=== PATIENT | female | born 1995 | race Caucasian/White ===

== ENCOUNTER 2016-08-17 09:02 | Emergency (ER) | payer OTHER ==
[2016-08-17 09:15] VITALS: BP 105/68
[2016-08-17] MEDS ORDERED: Ibuprofen TAB* 600 MG PO ONE (09:18)
--- NOTE | 2016-08-17 09:47 | UC ---
Hand/Wrist HPI - HPI Summary HPI Summary: right thumb pain x 1 day s/p fall yesterday , jammed her right thumb pain and swelling of the right thumb difficulty moving her right thumb - History Of Current Complaint Chief Complaint: UCUpperExtremity Stated Complaint: RIGHT THUMB PAIN Time Seen by Provider: 08/17/16 09:17 Hx Obtained From: Patient Hx Last Menstrual Period: "I don't know 'cause I went from the Depo to the arm thing..." ?: No Onset/Duration: Sudden Onset, Lasting Days - 1, Still Present Severity Initially: Moderate Severity Currently: Moderate Character Of Pain: Aching, Throbbing Aggravating Factor(s): Movement, Flexion, Extension Alleviating: Rest, Ice Associated Signs And Symptoms: Positive: Swelling, Weakness. Negative: Numbness /Tingling - Allergies/Home Medications Allergies/Adverse Reactions: Allergies Allergy/AdvReac Type Severity Reaction Status Date / Time Whit Grape Juice Allergy Swelling Uncoded 08/17/16 09:11 Home Medications: Home Medications NK [No Home Medications Reported] 08/17/16 [History Confirmed 08/17/16] PMH/Surg Hx/FS Hx/Imm Hx Endocrine History Of: Denies: Diabetes Cardiovascular History Of: Denies: Cardiac Disorders Respiratory History Of: Denies: Asthma - Surgical History Surgical History: None - Family History Known Family History: Positive: Hypertension - Social History Alcohol Use: Weekly Substance Use Type: None Smoking Status (MU): Light Every Day Tobacco Smoker Type: Cigarettes Amount Used/How Often: 1/3 PPD Length of Time of Smoking/Using Tobacco: Since age 15 Have You Smoked in the Last Year: Yes When Did the Patient Quit Smoking/Using Tobacco: quit 3 months ago Household Exposure Type: Cigarettes - Immunization History Most Recent Influenza Vaccination: Not the 2016/2016 Season Most Recent Tetanus Shot: 158LBS Review of Systems Constitutional: Negative Skin: Negative Eyes: Negative ENT: Negative Musculoskeletal: Other: - right thumb pain All Other Systems Reviewed And Are Negative: Yes Physical Exam Triage Information Reviewed: Yes Appearance: Well-Appearing, No Pain Distress, Well-Nourished Vital Signs: Initial Vital Signs Temp 98.6 F 08/17/16 09:09 Pulse 94 08/17/16 09:09 Resp 16 08/17/16 09:09 BP 105/68 08/17/16 09:09 Pulse Ox 99 08/17/16 09:09 Vital Signs Reviewed: Yes Eye Exam: Normal Eyes: Positive: Conjunctiva Clear ENT: Positive: Normal ENT inspection, Hearing grossly normal, Pharynx normal Neck exam: Normal Neck: Positive: Supple, Nontender, No Lymphadenopathy Respiratory: Positive: Chest non-tender, Lungs clear, Normal breath sounds Cardiovascular: Positive: RRR, No Murmur, Pulses Normal Musculoskeletal: Positive: Other: - right thumb : + swelling MP joint, tenderness , limited ROM on flexion from MP joint Diagnostics - Laboratory Diagnostic Studies Completed/Ordered: right thumb xray : no fracture seen Hand/Wrist Course/Dx - Differential Dx/Diagnosis Provider Diagnoses: sprain right thumb Discharge - Discharge Plan Condition: Stable Disposition: HOME Patient Education Materials: Finger Sprain (ED) Referrals: QIAN Jefferson [Primary Care Provider] - 7 Days Additional Instructions: no fracture seen on the xray sprain finger cont. with ice, rest, ibuprofen as needed for pain , use thumb spica follow up with your pcp in one week
--- NOTE | 2016-08-17 09:48 | RAD ---
HISTORY: Right thumb pain, trauma COMPARISONS: None VIEWS: 3, Frontal, lateral, and oblique views of the first digit of the right hand FINDINGS: BONE DENSITY: Normal. BONES: There is no displaced fracture. JOINTS: There is no arthropathy. ALIGNMENT: There is no dislocation. SOFT TISSUES: Unremarkable. OTHER FINDINGS: None. IMPRESSION: NO ACUTE OSSEOUS INJURY. IF SYMPTOMS PERSIST, RECOMMEND REPEAT IMAGING.
== END 2016-08-17 09:56 | disposition home or self-care (01) ==
LOC: UCCORT 09:02
DX: S63.601A Unspecified sprain of right thumb, initial encounter (principal); W19.XXXA Unspecified fall, initial encounter; Y93.9 Activity, unspecified; Y92.89 Other specified places as the place of occurrence of the external cause; Z87.891 Personal history of nicotine dependence; Z32.02 Encounter for pregnancy test, result negative
CPT/HCPCS: 84702; 99213; A9270-GY; G0463

== ENCOUNTER 2016-09-13 08:39 | Emergency (ER) | payer OTHER ==
[2016-09-13 09:06] VITALS: BP 112/71
--- NOTE | 2016-09-13 09:14 | UC ---
Throat Pain/Nasal Lamine HPI - HPI Summary HPI Summary: sore throat x 1 day , + nasal congestion , cough, no fever, no chills, + achy and fatigue - History of Current Complaint Chief Complaint: UCRespiratory Stated Complaint: THROAT,HEAD CONGESTION Time Seen by Provider: 09/13/16 09:08 Hx Obtained From: Patient Hx Last Menstrual Period: pt has nexplanon for B/C and states not getting a menses Onset/Duration: Gradual Onset, Lasting Days - 1, Still Present Severity: Severe Cough: Nonproductive Associated Signs & Symptoms: Positive: Nasal Discharge. Negative: Sinus Discomfort, Fever, Rash - Allergies/Home Medications Allergies/Adverse Reactions: Allergies Allergy/AdvReac Type Severity Reaction Status Date / Time Whit Grape Juice Allergy Swelling Uncoded 09/13/16 08:59 Home Medications: Home Medications Etonogestrel [Nexplanon] 68 mg IMPLANT DAILY 09/13/16 [History Confirmed ] PMH/Surg Hx/FS Hx/Imm Hx Endocrine History Of: Denies: Diabetes Cardiovascular History Of: Denies: Cardiac Disorders Respiratory History Of: Denies: Asthma - Surgical History Surgical History: None - Family History Known Family History: Positive: Hypertension - Social History Alcohol Use: Weekly Substance Use Type: None Smoking Status (MU): Heavy Every Day Tobacco Smoker Type: Cigarettes Amount Used/How Often: 1/2m ppd Length of Time of Smoking/Using Tobacco: Since age 15 Have You Smoked in the Last Year: Yes When Did the Patient Quit Smoking/Using Tobacco: quit 3 months ago Household Exposure Type: Cigarettes - Immunization History Most Recent Influenza Vaccination: Not the 2016/2016 Season Most Recent Tetanus Shot: 158LBS Review of Systems Constitutional: Negative Skin: Negative Eyes: Negative ENT: Sore Throat, Nasal Discharge Respiratory: Cough Cardiovascular: Negative Gastrointestinal: Negative Genitourinary: Negative All Other Systems Reviewed And Are Negative: Yes Physical Exam Triage Information Reviewed: Yes Appearance: Well-Appearing, No Pain Distress, Well-Nourished Vital Signs: Initial Vital Signs Temp 98.2 F 09/13/16 08:50 Pulse 81 09/13/16 08:50 Resp 14 09/13/16 08:50 BP 112/71 09/13/16 08:50 Pulse Ox 99 09/13/16 08:50 Eye Exam: Normal Eyes: Positive: Conjunctiva Clear ENT: Positive: Normal ENT inspection, Hearing grossly normal, Pharyngeal erythema, Nasal congestion, Nasal drainage, TMs normal Neck exam: Normal Neck: Positive: Supple, Nontender, No Lymphadenopathy Respiratory: Positive: Chest non-tender, Lungs clear, Normal breath sounds, No respiratory distress Cardiovascular: Positive: RRR, No Murmur, Pulses Normal Abdominal Exam: Normal Throat Pain/Nasal Course/Dx - Differential Dx/Diagnosis Provider Diagnoses: pharyngitis Discharge - Discharge Plan Condition: Stable Disposition: HOME Patient Education Materials: Pharyngitis (ED) Forms: *Work Release Referrals: QIAN Jefferson [Primary Care Provider] - If Needed
== END 2016-09-13 09:31 | disposition home or self-care (01) ==
LOC: UCCORT 08:39
DX: J02.9 Acute pharyngitis, unspecified (principal); R09.81 Nasal congestion
CPT/HCPCS: 87651; 99211; G0463

== ENCOUNTER 2016-09-19 19:08 | Emergency (ER) | payer OTHER ==
[2016-09-19 20:47] VITALS: BP 112/69
[2016-09-19] MEDS ORDERED: Amoxicillin/Clavulanate TAB* 875 MG PO ONE (21:00)
--- NOTE | 2016-09-19 22:08 | UC ---
Throat Pain/Nasal Lamine HPI - HPI Summary HPI Summary: NINE DAYS OF SINUS PRESSURE CONGESTION HEADACHE AND SORE THROAT. SEEN ON DIAGNOSED WITH URI. NO FEVER. NO RASH NO ABDOMINAL PAIN - History of Current Complaint Chief Complaint: UCGeneralIllness Stated Complaint: SINUS INFECTION Time Seen by Provider: 09/19/16 20:53 Hx Obtained From: Patient Hx Last Menstrual Period: nexplanon Onset/Duration: Gradual Onset, Lasting Weeks, Still Present Severity: Moderate Pain Intensity: 7 Pain Scale Used: 0-10 Numeric Cough: Nonproductive Associated Signs & Symptoms: Positive: Hoarseness, Sinus Discomfort, Nasal Discharge - Epiglottits Risk Factors Epiglottis Risk Factors: Negative - Allergies/Home Medications Allergies/Adverse Reactions: Allergies Allergy/AdvReac Type Severity Reaction Status Date / Time Whit Grape Juice Allergy Swelling Uncoded 09/19/16 20:47 PMH/Surg Hx/FS Hx/Imm Hx Previously Healthy: Yes Endocrine History Of: Denies: Diabetes Cardiovascular History Of: Denies: Cardiac Disorders Respiratory History Of: Denies: Asthma - Surgical History Surgical History: None - Family History Known Family History: Positive: Hypertension - Social History Occupation: Employed Full-time Lives: With Family Alcohol Use: Occasionally Substance Use Type: None Smoking Status (MU): Light Every Day Tobacco Smoker Type: Cigarettes Amount Used/How Often: 1/3 PPD Length of Time of Smoking/Using Tobacco: Since age 15 Have You Smoked in the Last Year: Yes When Did the Patient Quit Smoking/Using Tobacco: quit 3 months ago Household Exposure Type: Cigarettes - Immunization History Most Recent Influenza Vaccination: Not the 2016/2016 Season Most Recent Tetanus Shot: 158LBS Review of Systems Constitutional: Negative Skin: Negative Eyes: Negative ENT: Sore Throat, Ear Ache, Nasal Discharge Respiratory: Cough Cardiovascular: Negative Gastrointestinal: Negative Genitourinary: Negative Motor: Negative Neurovascular: Negative Musculoskeletal: Negative Neurological: Negative Psychological: Negative All Other Systems Reviewed And Are Negative: Yes Physical Exam Triage Information Reviewed: Yes Appearance: Well-Appearing, No Pain Distress, Well-Nourished Vital Signs: Initial Vital Signs Temp 98.5 F 09/19/16 20:43 Pulse 102 09/19/16 20:43 Resp 16 09/19/16 20:43 BP 112/69 09/19/16 20:43 Pulse Ox 97 09/19/16 20:43 Vital Signs Reviewed: Yes Eye Exam: Normal ENT: Positive: Hearing grossly normal, Nasal congestion, TM bulging, TM dull Dental Exam: Normal Neck exam: Normal Neck: Positive: Supple, Nontender, No Lymphadenopathy Respiratory Exam: Normal Respiratory: Positive: Chest non-tender, Lungs clear, Normal breath sounds Cardiovascular Exam: Normal Cardiovascular: Positive: RRR, No Murmur, Pulses Normal Abdominal Exam: Normal Abdomen Description: Positive: Nontender, No Organomegaly Musculoskeletal Exam: Normal Neurological Exam: Normal Psychological Exam: Normal Skin Exam: Normal Throat Pain/Nasal Course/Dx - Differential Dx/Diagnosis Differential Diagnosis/HQI/PQRI: Pharyngitis, Sinusitis, URI Provider Diagnoses: SINUSITIS Discharge - Discharge Plan Condition: Stable Disposition: HOME Prescriptions: Amoxicillin/Clavulanate TAB* [Augmentin TAB 875*] 875 mg PO BID #20 tab Patient Education Materials: Sinusitis (ED) Referrals: QIAN Jefferson [Primary Care Provider] -
== END 2016-09-19 21:08 | disposition home or self-care (01) ==
LOC: UCCORT 19:08
DX: J32.9 Chronic sinusitis, unspecified (principal); Z87.891 Personal history of nicotine dependence
CPT/HCPCS: 99211; A9270-GY; G0463

== ENCOUNTER 2016-12-17 11:41 | Emergency (ER) | payer OTHER ==
[2016-12-17 11:57] VITALS: BP 108/69
--- NOTE | 2016-12-17 12:26 | UC ---
Complaint Female HPI - HPI Summary HPI Summary: 21 y/o female presents to the urgent care c/o vaginal discharge w/ vaginal itching since 12/13/2016. Pt thinks she has a yeast infection. she took monistat 3 days ago and it didn't help. Pt cant recall her LMP since she has been in Nexplanon, she has a yeast infection in 2016, and Rx Diflucan which helped. Pt denies Hx of STD's , but would like to screen for all STD's. Pt denies urinary symptoms, fever, SOB, chest pain, N/V/D. pelvic or abdominal pain. - History Of Current Complaint Chief Complaint: UCGU Stated Complaint: PERSONAL Time Seen by Provider: 12/17/16 12:11 Hx Obtained From: Patient Hx Last Menstrual Period: "I have no clue." [Nexplanon] Onset/Duration: Gradual Onset, Lasting Days, Still Present Timing: Constant, Lasting Days Severity Initially: Mild Severity Currently: Moderate Pain Intensity: 0 Pain Scale Used: 0-10 Numeric Character: Not Applicable Aggravating Factor(s): Nothing Alleviating Factor(s): Nothing Associated Signs And Symptoms: Positive: Vaginal Discharge. Negative: Fever, Back Pain, Nausea, Vomiting(# Of Episodes =), Genital Swelling, Genital Blisters - Risk Factors Ectopic Risk Factor: Negative Ovarian Torsion Risk Factor: Negative - Allergies/Home Medications Allergies/Adverse Reactions: Allergies Allergy/AdvReac Type Severity Reaction Status Date / Time White Grape Juice Allergy Swelling Uncoded 12/17/16 11:54 PMH/Surg Hx/FS Hx/Imm Hx Previously Healthy: Yes - Surgical History Surgical History: None - Family History Known Family History: Positive: Hypertension - Social History Occupation: Employed Full-time Lives: With Family Alcohol Use: Weekly Substance Use Type: None Smoking Status (MU): Heavy Every Day Tobacco Smoker Type: Cigarettes Amount Used/How Often: 1/2 PPD Length of Time of Smoking/Using Tobacco: Since Age 14 Have You Smoked in the Last Year: Yes When Did the Patient Quit Smoking/Using Tobacco: quit 3 months ago Household Exposure Type: Cigarettes - Immunization History Most Recent Influenza Vaccination: Not the 2015/2016 Season Most Recent Tetanus Shot: 158LBS Review of Systems Constitutional: Negative Skin: Negative Eyes: Negative ENT: Negative Respiratory: Negative Cardiovascular: Negative Gastrointestinal: Other - vaginal discharge with itchiness Genitourinary: Negative Motor: Negative Neurovascular: Negative Musculoskeletal: Negative Neurological: Negative Psychological: Negative All Other Systems Reviewed And Are Negative: Yes Physical Exam Triage Information Reviewed: Yes Appearance: Well-Appearing, No Pain Distress, Well-Nourished Vital Signs: Initial Vital Signs Temp 98.6 F 12/17/16 11:51 Pulse 102 12/17/16 11:51 Resp 16 12/17/16 11:51 BP 108/69 12/17/16 11:51 Pulse Ox 98 12/17/16 11:51 Vital Signs Reviewed: Yes Eye Exam: Normal Eyes: Positive: Conjunctiva Clear - PERRLA, EOMI, ENT Exam: Normal ENT: Positive: Normal ENT inspection, Hearing grossly normal, Pharynx normal, TMs normal Dental Exam: Normal Neck exam: Normal Neck: Positive: Supple, Nontender, No Lymphadenopathy Respiratory Exam: Normal Respiratory: Positive: Chest non-tender, Lungs clear, Normal breath sounds Cardiovascular Exam: Normal Cardiovascular: Positive: RRR, No Murmur, Pulses Normal Abdominal Exam: Normal Abdomen Description: Positive: Nontender, No Organomegaly, Soft, Other: - Pelvic: I was assisted by Nurse Yuli. External genitalia within normal limits. There is no lesions there is no masses noted. Speculum exam: The vaginal marquez are within normal limits w/ white, greyish cottage cheese vaginal discharge, no the lesions or rashes. The cervix is closed with mild erythema around. There is no CMT's, and no adnexal masses. Sample sent to Lab for G/ C and affirm. Rectal: No lesions, no hemorrhoids,. Negative: CVA Tenderness (R) , CVA Tenderness (L) Bowel Sounds: Positive: Present Musculoskeletal Exam: Normal Musculoskeletal: Positive: Strength Intact, ROM Intact, No Edema Neurological Exam: Normal Psychological Exam: Normal Skin Exam: Normal Complaint Female Dx - Course Course Of Treatment: 21 y/o female presents to the urgent care c/o vaginal discharge w/ vaginal itching since 12/13/2016. Pt thinks she has a yeast infection. she took monistat 3 days ago and it didn't help. Pt cant recall her LMP since she has been in Nexplanon, she has a yeast infection in 2016, and Rx Diflucan which helped. Pt denies Hx of STD's , but would like to screen for all STD's. Pt denies urinary symptoms, fever, SOB, chest pain, N/V/D. pelvic or abdominal pain.HX obtained. Labs ordered to screen for all STD's: HIV, RPR, GC/Shahriar, Affirm, UA: + trace of Leukoescteraces, will be sent for culture r/o UTI. Pregnanacy test: negative. Pt Rx Fluconazol PO and Metronidazol vaginal cream to Tx Vulvovaginal Candidiasis and BV. Pt stronly advised to f/u with ASSESSMENT ANALYST for a PAP since there is erythema aroud the cervical os. Pt also advised if anything abnormal from lab result she will hear from us for further treatment. Pt understood and agreed - Differential Dx/Diagnosis Differential Diagnosis/HQI/PQRI: Cervicitis, Pelvic Inflammatory Disease, , Sexually Transmitted Disease, Urinary Tract Infection, Other - vaginosis Provider Diagnoses: 1- Vulvovaginal candidiasis. 2- Bacterail Vaginosis. 3 HIV screening. 4- sexually transmitted disease screening Discharge - Discharge Plan Condition: Stable Disposition: HOME Prescriptions: Fluconazole [Fluconazole 150 mg tab] 150 mg PO ONCE #1 tab metroNIDAZOLE VAGINAL 0.75%* 1 applic VAGINAL BEDTIME #1 romel Patient Education Materials: Vulvovaginal Candidiasis (ED), Bacterial Vaginosis (ED) Referrals: QIAN Jefferson [Primary Care Provider] - If Needed Additional Instructions: 1- Please take and apply medications as directed. 2-Specimen sent to lab for STD's screening, if anything abnormal you will hear from us for further treatment 3-F/u with your ASSESSMENT ANALYST if not improvement of symptoms or your next PAP
[2016-12-18 13:29] LABS: Syphilis Index < 0.1 Index
--- NOTE | 2016-12-19 13:51 | UC ---
Progress - Progress Note Progress Note: Vag DNA shows +BV, pt treated with metronidazole. Shannon neg, was given fluconazole x 1. Urine culture shows 1-10,000 Strep Grp B, will treat. Needs Amoxicillin 875mg po bid #14. E-Rx'd. allergies noted. test neg on date examined. Aryan Wayne MD, 12/19/16, 13:54.
== END 2016-12-17 13:00 | disposition home or self-care (01) ==
LOC: UCCORT 11:41
DX: N76.0 Acute vaginitis (principal); Z11.4 Encounter for screening for human immunodeficiency virus [HIV]; F17.200 Nicotine dependence, unspecified, uncomplicated
CPT/HCPCS: 36415; 81003; 84702; 86592; 86703; 87077; 87086; 87480; 87491; 87510; 87591; 87661; 99212; G0463

== ENCOUNTER 2017-01-13 16:30 | Emergency (ER) | payer OTHER ==
[2017-01-13 16:44] VITALS: BP 113/63
--- NOTE | 2017-01-13 17:26 | UC ---
Throat Pain/Nasal Lamine HPI - HPI Summary HPI Summary: SORE THROAT SINCE YESTERDAY, EAR FULLNESS. NO FEVER. NO RASH. NO ABDOMINAL PAIN. - History of Current Complaint Chief Complaint: UCRespiratory Stated Complaint: SORE THROAT Time Seen by Provider: 01/13/17 16:37 Hx Obtained From: Patient Hx Last Menstrual Period: pt has implanon and states not getting a menses Onset/Duration: Gradual Onset Severity: Moderate Pain Intensity: 6 Pain Scale Used: 0-10 Numeric Cough: None Associated Signs & Symptoms: Positive: Dysphagia, Hoarseness - Epiglottits Risk Factors Epiglottis Risk Factors: Negative - Allergies/Home Medications Allergies/Adverse Reactions: Allergies Allergy/AdvReac Type Severity Reaction Status Date / Time White Grape Juice Allergy Swelling Uncoded 12/17/16 11:54 Home Medications: Home Medications Antihistimine 1 tab PO PRN 01/13/17 [History] Ibuprofen [Ibuprofen 200 MG] 400 mg PO PRN 01/13/17 [History] PMH/Surg Hx/FS Hx/Imm Hx Previously Healthy: Yes - Surgical History Surgical History: None - Family History Known Family History: Positive: Hypertension - Social History Occupation: Employed Full-time Lives: With Family Alcohol Use: Weekly Substance Use Type: None Smoking Status (MU): Heavy Every Day Tobacco Smoker Type: Cigarettes Amount Used/How Often: 1/2 PPD Length of Time of Smoking/Using Tobacco: Since Age 14 Have You Smoked in the Last Year: Yes When Did the Patient Quit Smoking/Using Tobacco: quit 3 months ago Household Exposure Type: Cigarettes Cessation Counseling: Patient Advised to Stop - Immunization History Most Recent Influenza Vaccination: Not the 2016/2016 Season Most Recent Tetanus Shot: 158LBS Review of Systems Constitutional: Negative Skin: Negative Eyes: Negative ENT: Sore Throat Respiratory: Negative Cardiovascular: Negative Gastrointestinal: Negative Genitourinary: Negative Motor: Negative Neurovascular: Negative Musculoskeletal: Negative Neurological: Negative Psychological: Negative Is Patient Immunocompromised?: No All Other Systems Reviewed And Are Negative: Yes Physical Exam Triage Information Reviewed: Yes Appearance: No Pain Distress, Well-Nourished, Ill-Appearing - MILDLY Vital Signs: Initial Vital Signs Temp 98.9 F 01/13/17 16:39 Pulse 89 01/13/17 16:39 Resp 16 01/13/17 16:39 BP 113/63 01/13/17 16:39 Pulse Ox 99 01/13/17 16:39 Vital Signs Reviewed: Yes Eye Exam: Normal ENT: Positive: Hearing grossly normal, Pharyngeal erythema, TMs normal, Tonsillar swelling Dental Exam: Normal Neck exam: Normal Neck: Positive: Supple, Nontender, No Lymphadenopathy Respiratory Exam: Normal Respiratory: Positive: Chest non-tender, Lungs clear, Normal breath sounds, No respiratory distress Cardiovascular Exam: Normal Cardiovascular: Positive: RRR, No Murmur, Pulses Normal Abdominal Exam: Normal Abdomen Description: Positive: Nontender, No Organomegaly Musculoskeletal Exam: Normal Musculoskeletal: Positive: Strength Intact, ROM Intact Neurological Exam: Normal Psychological Exam: Normal Skin Exam: Normal Throat Pain/Nasal Course/Dx - Differential Dx/Diagnosis Differential Diagnosis/HQI/PQRI: Pharyngitis, Sinusitis, Tonsillitis Provider Diagnoses: TONSILLITIS Discharge - Discharge Plan Condition: Stable Disposition: HOME Patient Education Materials: Tonsillitis (ED) Forms: *Work Release Referrals: QIAN Jefferson [Primary Care Provider] -
== END 2017-01-13 17:15 | disposition home or self-care (01) ==
LOC: UCCORT 16:30
DX: J03.90 Acute tonsillitis, unspecified (principal); Z72.0 Tobacco use
CPT/HCPCS: 87651; 99211; G0463

== ENCOUNTER 2017-04-06 16:16 | Emergency (ER) | payer OTHER ==
[2017-04-06 16:33] VITALS: BP 130/69
--- NOTE | 2017-04-06 17:07 | UC ---
UC General HPI - HPI Summary HPI Summary: Patient has had white vaginal dishcarge, with an odor and some itching of the vulva for the past few days, - History of Current Complaint Chief Complaint: UCGU Stated Complaint: PERSONAL Time Seen by Provider: 04/06/17 16:50 Hx Obtained From: Patient Hx Last Menstrual Period: pt has implanon and states not getting a menses Onset/Duration: Sudden Onset, Lasting Days Timing: Constant Onset Severity: Mild Current Severity: Mild - Allergy/Home Medications Allergies/Adverse Reactions: Allergies Allergy/AdvReac Type Severity Reaction Status Date / Time White Grape Juice Allergy Swelling Uncoded 04/06/17 16:34 PMH/Surg Hx/FS Hx/Imm Hx Previously Healthy: Yes - Surgical History Surgical History: None - Family History Known Family History: Positive: Hypertension - Social History Alcohol Use: Weekly Substance Use Type: None Smoking Status (MU): Heavy Every Day Tobacco Smoker Type: Cigarettes Amount Used/How Often: 1/2 PPD Length of Time of Smoking/Using Tobacco: Since Age 14 Have You Smoked in the Last Year: Yes When Did the Patient Quit Smoking/Using Tobacco: quit 3 months ago Household Exposure Type: Cigarettes - Immunization History Most Recent Influenza Vaccination: Not the 2015/2016 Season Most Recent Tetanus Shot: 158LBS Review of Systems Constitutional: Negative Skin: Negative Eyes: Negative ENT: Negative Respiratory: Negative Cardiovascular: Negative Gastrointestinal: Negative Genitourinary: Vaginal/Penile Itching, Vaginal/Penile Discharge Motor: Negative Neurovascular: Negative Musculoskeletal: Negative Neurological: Negative Psychological: Negative Is Patient Immunocompromised?: No All Other Systems Reviewed And Are Negative: Yes Physical Exam Triage Information Reviewed: Yes Appearance: Well-Appearing, Well-Nourished, Pain Distress Vital Signs: Initial Vital Signs Temp 98.4 F 04/06/17 16:29 Pulse 95 04/06/17 16:29 Resp 17 04/06/17 16:29 BP 130/69 04/06/17 16:29 Pulse Ox 99 04/06/17 16:29 Vital Signs Reviewed: Yes Eye Exam: Normal ENT Exam: Normal Dental Exam: Normal Neck exam: Normal Respiratory Exam: Normal Cardiovascular Exam: Normal Abdominal Exam: Normal Abdomen Description: Positive: Nontender, No Organomegaly, Soft, Other: - vaginal discharge Bowel Sounds: Positive: Present Musculoskeletal Exam: Normal Neurological Exam: Normal Psychological Exam: Normal Course/Dx - Course Course Of Treatment: hx obtained, exam performed ,med reviewed, treated for Yeast infection - Differential Dx - Multi-Symptom Provider Diagnoses: vaginitis Discharge - Discharge Plan Condition: Stable Disposition: HOME Patient Education Materials: Vaginitis (ED) Referrals: QIAN Jefferson [Primary Care Provider] - Additional Instructions: 1. take the medication as prescribed. 2. use the coconut oil for soothing the skin 3. follow up as needed.
== END 2017-04-06 17:19 | disposition home or self-care (01) ==
LOC: UCCORT 16:16
DX: N76.0 Acute vaginitis (principal); Z11.4 Encounter for screening for human immunodeficiency virus [HIV]; Z87.891 Personal history of nicotine dependence
CPT/HCPCS: 36415; 86703; 99212; G0463

== ENCOUNTER 2017-05-27 16:15 | Emergency (ER) | payer OTHER ==
[2017-05-27 17:26] VITALS: BP 115/68
--- NOTE | 2017-05-27 17:27 | UC ---
Throat Pain/Nasal Lamine HPI - HPI Summary HPI Summary: 22 y/o female presents to the urgent care c/o sore throat, fever, Tompkins nasal congestion and body aches for the past 2 days. Her friend was Dx with bronchitis recently. Pt has taking Tylenol PO to alleviate symptoms. Pain is 5/ 10 with swallowing. Pt denies SOB, wheezing, chest pain, abdominal pain, N/V/D. - History of Current Complaint Chief Complaint: UCRespiratory Stated Complaint: SORE THROAT/FEVER Time Seen by Provider: 05/27/17 17:25 Hx Obtained From: Patient Hx Last Menstrual Period: unknown, nexplanon ?: No Onset/Duration: Gradual Onset, Lasting Days - 2 days, Still Present Severity: Moderate Pain Intensity: 5 Pain Scale Used: 0-10 Numeric Cough: Nonproductive Associated Signs & Symptoms: Positive: Nasal Discharge, Fever, Other - body aches - Epiglottits Risk Factors Epiglottis Risk Factors: Negative - Allergies/Home Medications Allergies/Adverse Reactions: Allergies Allergy/AdvReac Type Severity Reaction Status Date / Time White Grape Juice Allergy Swelling Uncoded 05/27/17 17:26 Home Medications: Home Medications Acetaminophen TAB* [Tylenol TAB*] 650 mg PO Q4H PRN 05/27/17 [History Confirmed 05/27/17] PMH/Surg Hx/FS Hx/Imm Hx Previously Healthy: Yes - Pt deneis PMHX - Surgical History Surgical History: None - Family History Known Family History: Positive: Hypertension - Social History Occupation: Employed Full-time Lives: With Family Alcohol Use: Weekly Substance Use Type: None Smoking Status (MU): Heavy Every Day Tobacco Smoker Type: Cigarettes Amount Used/How Often: 1/2 PPD Length of Time of Smoking/Using Tobacco: Since Age 14 Have You Smoked in the Last Year: Yes When Did the Patient Quit Smoking/Using Tobacco: quit 3 months ago Household Exposure Type: Cigarettes - Immunization History Most Recent Influenza Vaccination: Not the 2016/2017 Season Most Recent Tetanus Shot: 158LBS Review of Systems Constitutional: Fever, Other - body aches Skin: Negative Eyes: Negative ENT: Sore Throat, Nasal Discharge, Sinus Congestion Respiratory: Cough - dry Cardiovascular: Negative Gastrointestinal: Negative Genitourinary: Negative Motor: Negative Neurovascular: Negative Musculoskeletal: Negative Neurological: Headache Psychological: Negative Is Patient Immunocompromised?: No All Other Systems Reviewed And Are Negative: Yes Physical Exam Triage Information Reviewed: Yes Vital Signs: Initial Vital Signs Temp 99 F 05/27/17 17:22 Pulse 88 05/27/17 17:22 Resp 16 05/27/17 17:22 BP 115/68 05/27/17 17:22 Pulse Ox 100 05/27/17 17:22 - Additional Comments VITAL SIGNS: Reviewed. GENERAL: Patient is a well developed and nourished female who is sitting comfortable in the examining table. Patient is not in any acute respiratory distress. HEAD AND FACE: No signs of trauma. No ecchymosis, hematomas or skull depressions. No sinus tenderness. EYES: PERRLA, EOMI x 2, No injected conjunctiva, no nystagmus. No photophobia. EARS: Hearing grossly intact. Ear canals and tympanic membranes are within normal limits. MOUTH: Positive pharynx with erythema, no exudates, palatal petechiae. No B/L tonsillar enlargement . . Uvula in midline. NECK: Supple, trachea is midline, Positive anterior cervical lymphadenopathy, no JVD, no carotid bruit, no c-spine tenderness, neck with full ROM. No meningeal signs, no Kernig's or brudzinskis signs. CHEST: Symmetric, no tenderness at palpation LUNGS: Clear to auscultation bilaterally. No wheezing or crackles. CVS: Regular rate and rhythm, S1 and S2 present, no murmurs or gallops appreciated. ABDOMEN: Soft, non-tender. No signs of distention. No rebound no guarding, and no masses palpated. Bowel sounds are normal. EXTREMITIES: FROM in all major joints, no edema, no cyanosis or clubbing. NEURO: Alert and oriented x 3. No acute neurological deficits. Speech is normal and follows commands. SKIN: Dry and warm Throat Pain/Nasal Course/Dx - Course Course Of Treatment: 22 y/o female presents to the urgent care c/o sore throat, fever, Tompkins nasal congestion and body aches for the past 2 days. Her friend was Dx with bronchitis recently. Pt has taking Tylenol PO to alleviate symptoms. Pain is 5/10 with swallowing. Pt denies SOB, wheezing, chest pain, abdominal pain, N/V/D. Hx obtained. Pt with pharyngitis on examination. Rapid strep ordered, result: negative.Influenza A&B ordered: result: negative. Pt Rx ibuprofen PO to alleviates symptoms. Advised on hand washing. Pt advised to rest , increase fluid intake, eat well and avoid strenuous exercise. If symptoms do not improve or worsen advised to return to the urgent care or f/u with her PCP for further evaluation and treatment. Pt understood and agreed with plan of care. - Differential Dx/Diagnosis Differential Diagnosis/HQI/PQRI: Influenza, Laryngitis, Mononucleosis, Pharyngitis, Sinusitis, Tonsillitis, URI Provider Diagnoses: 1-Acute viral pharyngitis Discharge - Discharge Plan Condition: Stable Disposition: HOME Prescriptions: Ibuprofen TAB* [Motrin TAB* 800 MG] 800 mg PO Q6H PRN #20 tab PRN Reason: Sore Throat Patient Education Materials: Pharyngitis (ED) Forms: *Work Release Referrals: [facility] [Outside] - If Needed Additional Instructions: 1-Please take ibuprofen PO q6-8hrs prn as instructed after meals to alleviate pain and swelling. Increase fluid intake, eat well, rest and avoid strenuous exercise 2-If symptoms do not improve or worsen please return to the urgent care or f/u with your PCP for further evaluation and treatment.
== END 2017-05-27 18:09 | disposition home or self-care (01) ==
LOC: UCCORT 16:15
DX: J02.9 Acute pharyngitis, unspecified (principal); R50.9 Fever, unspecified; R51 Headache; R09.81 Nasal congestion; M79.1 Myalgia; Z72.0 Tobacco use
CPT/HCPCS: 87502; 87651; 99211; G0463

== ENCOUNTER 2018-08-04 09:02 | Emergency (ER) | payer OTHER ==
[2018-08-04 10:05] VITALS: BP 96/57
--- NOTE | 2018-08-04 10:14 | UC ---
General HPI - HPI Summary HPI Summary: R EYE IRRITATED AND RED WITH GREEN DISCHARGE SINCE YESTERDAY. NO CONTACT USE OR VISUAL LOSS. PEOPLE AT WORK ARE "ALL SICK". - History of Current Complaint Chief Complaint: UCEye Stated Complaint: RT EYE CONCERN Time Seen by Provider: 08/04/18 10:07 Hx Obtained From: Patient Hx Last Menstrual Period: depo Onset/Duration: Gradual Onset Timing: Constant Pain Intensity: 0 Associated Signs & Symptoms: Negative: Edema, Fever, Headache - Allergy/Home Medications Allergies/Adverse Reactions: Allergies Allergy/AdvReac Type Severity Reaction Status Date / Time White Grape Juice Allergy Swelling Uncoded 08/04/18 10:00 Home Medications: Home Medications Omeprazole 20 mg PO DAILY 08/04/18 [History Confirmed 08/04/18] medroxyPROGESTERone ACETATE* [DEPO-Provera] 150 mg IM SEE INSTRUCTIONS 08/04/18 [History Confirmed 08/04/18] PMH/Surg Hx/FS Hx/Imm Hx GI/ History: Gastroesophageal Reflux - Surgical History Surgical History: None - Family History Known Family History: Positive: Hypertension - Social History Occupation: Employed Full-time Alcohol Use: Occasionally Substance Use Type: None Smoking Status (MU): Former Smoker Type: Cigarettes Amount Used/How Often: 1/2 PPD Length of Time of Smoking/Using Tobacco: Since Age 14 Have You Smoked in the Last Year: Yes When Did the Patient Quit Smoking/Using Tobacco: 10/2017 Household Exposure Type: Cigarettes - Immunization History Most Recent Influenza Vaccination: Not the 2016/2016 Season Most Recent Tetanus Shot: 158LBS Review of Systems All Other Systems Reviewed And Are Negative: Yes Eyes: Positive: Drainage, Eye Redness. Negative: Blurred Vision, Diplopia, Photophobia Physical Exam Triage Information Reviewed: Yes Appearance: Well-Appearing Vital Signs: Initial Vital Signs Temp 98.1 F 08/04/18 10:01 Pulse 73 08/04/18 10:01 Resp 14 08/04/18 10:01 BP 96/57 08/04/18 10:01 Pulse Ox 100 08/04/18 10:01 Vital Signs Reviewed: Yes Eyes: Positive: Other: - no auricular adenopathy. no periorbital edema or rash. R conjunctiva injected with exudate, L is clear. PERRL, EOMI. AC's clear. No FB's. ENT: Positive: Pharynx normal, TMs normal. Negative: Nasal congestion Neck: Positive: Supple, Nontender, No Lymphadenopathy Respiratory: Positive: Lungs clear Cardiovascular: Positive: RRR Abdomen Description: Positive: Nontender Bowel Sounds: Positive: Present Musculoskeletal: Positive: ROM Intact Neurological: Positive: Alert Psychological: Positive: Age Appropriate Behavior Skin Exam: Normal Skin: Negative: Rashes Course/Dx - Diagnoses Provider Diagnosis: Conjunctivitis Discharge - Sign-Out/Discharge Documenting (check all that apply): Patient Departure All imaging exams completed and their final reports reviewed: No Studies - Discharge Plan Condition: Stable Disposition: HOME Prescriptions: Polymyx/Trimethoprim OPTH* [Polytrim OPHTH*] 1 drop BOTH EYES Q3H 7 Days #1 btl Patient Education Materials: Conjunctivitis (ED) Forms: *Work Release Referrals: Ashly Richards [Primary Care Provider] - 7 Days Additional Instructions: FOLLOW UP IF NOT BETTER IN 7 DAYS OR SOONER IF WORSE. - Billing Disposition and Condition Condition: STABLE Disposition: Home
== END 2018-08-04 10:23 | disposition home or self-care (01) ==
LOC: UCCORT 09:02
DX: H10.9 Unspecified conjunctivitis (principal); K21.9 Gastro-esophageal reflux disease without esophagitis; Z87.891 Personal history of nicotine dependence
CPT/HCPCS: 99212; G0463

== ENCOUNTER 2018-08-24 07:15 | Emergency (ER) | payer OTHER ==
[2018-08-24 07:30] VITALS: BP 110/63
--- NOTE | 2018-08-24 07:40 | UC ---
Throat Pain/Nasal Lamine HPI - HPI Summary HPI Summary: Patient presents to urgent car reporting progressive sore throat for the last 2- 3 days. Patient with a history of recurrent tonsillitis. Patient states last time her strep wass negative and she progressed went to emergency department being evaluated by Dr. Duran. Patient states Dr. Duran instructed she should be put on antibiotics at this happens again in her tonsils with a taken out. Patient states painful swallowing. Patient's been using Motrin for her fevers with a MAXIMUM TEMPERATURE of 102. Patient has been swish and swallow with warm salt water. No chest pain or shortness of breath. No nausea vomiting. Patient states she is not medications reviewed this visit. No sick contacts. - History of Current Complaint Chief Complaint: UCGeneralIllness Stated Complaint: FEVER,SORE THROAT Time Seen by Provider: 08/24/18 07:36 Hx Obtained From: Patient Hx Last Menstrual Period: depo ?: No Onset/Duration: Gradual Onset Severity: Severe Pain Intensity: 8 - Allergies/Home Medications Allergies/Adverse Reactions: Allergies Allergy/AdvReac Type Severity Reaction Status Date / Time White Grape Juice Allergy Swelling Uncoded 08/24/18 07:27 Home Medications: Home Medications D-Methorphan/PE/Acetaminophen [Phuong-Allen Plus Day Col] 1 cap PO ONCE [History Confirmed 08/24/18] Ibuprofen TAB* [Advil TAB*] 400 mg PO Q6H PRN 08/24/18 [History Confirmed ] PMH/Surg Hx/FS Hx/Imm Hx Previously Healthy: Yes - Surgical History Surgical History: None - Family History Known Family History: Positive: Hypertension - Social History Occupation: Student Lives: With Family Alcohol Use: Occasionally Substance Use Type: None Smoking Status (MU): Former Smoker Type: Cigarettes Amount Used/How Often: 1/2 PPD Length of Time of Smoking/Using Tobacco: Since Age 14 Have You Smoked in the Last Year: Yes When Did the Patient Quit Smoking/Using Tobacco: 10/2017 Household Exposure Type: Cigarettes - Immunization History Most Recent Influenza Vaccination: Not the 2016/2016 Season Most Recent Tetanus Shot: 158LBS Review of Systems All Other Systems Reviewed And Are Negative: Yes Constitutional: Positive: Fever ENT: Positive: Sore Throat, Sinus Congestion Respiratory: Positive: Negative Cardiovascular: Positive: Negative Physical Exam - Summary Physical Exam Summary: Vital Signs Reviewed: Yes A+Ox3, no distress Eyes: Conjunctiva Clear, ANTONIA. EOM intact and full ENT: Hearing grossly normal TM x 2 clear, turbinates wnl, mmoist, uvula midline , tonsils enlarged, + erythema, + exudate L>R no asymmetry Neck: Positive: Supple Respiratory: Positive: No respiratory distress, No accessory muscle use + CTA throughout no w/r Cardiovascular: RRR nl s1, s2 no m/r CBT <2 sec abd soft + BS nt/nd no guarding, no distension Musculoskeletal Exam: MOHAN x 4 without difficulty Strength Intact, ROM Intact Neurological: Positive: Alert, + sensation throughout Psychological: Positive: Normal Response To Family Skin: Positive: no rash, no ecchymosis Triage Information Reviewed: Yes Vital Signs: Initial Vital Signs Temp 98.1 F 08/24/18 07:27 Pulse 90 08/24/18 07:27 Resp 18 08/24/18 07:27 BP 110/63 08/24/18 07:27 Pulse Ox 99 08/24/18 07:27 Throat Pain/Nasal Course/Dx - Course Course Of Treatment: Patient presents to urgent care with progressive sore throat and fevers last to 3 days. Patient with history of recurrent tonsillitis. Patient's patient of Dr. Duran who indicated he would take her tonsils out of this happen again. Patient's vital signs reviewed. Patient took Motrin this morning. Patient noted to have large inflamed tonsils diffuse erythema and exudate left greater than right tonsil. Patient's symptoms. Rapid strep is negative. Given patient 's history of tonsillitis and reported previous conversations with Dr. Duran, will scar patient a Bundy as well as prednisone. Recommend gargle spit warm salt water. Secretion secretion precautions. Work note. Mom with Dr. Duran this week. Patient states understanding agreement with plan. She also given a prescription for Diflucan as she states she gets yeast infections following antibiotics. - Differential Dx/Diagnosis Provider Diagnosis: Tonsillitis Discharge - Sign-Out/Discharge Documenting (check all that apply): Patient Departure All imaging exams completed and their final reports reviewed: No Studies - Discharge Plan Condition: Stable Disposition: HOME Prescriptions: Amoxicillin PO (*) [Amoxicillin 500 MG CAP*] 500 mg PO Q12H #20 cap Fluconazole [Diflucan 150 MG (NF)] 150 mg PO ONCE PRN #1 tab PRN Reason: vaginal yeast infection predniSONE TAB* [Deltasone TAB*] 50 mg PO DAILY #5 tab Patient Education Materials: Tonsillitis (ED) Forms: *Work Release Referrals: Ashly Richards [Primary Care Provider] - Chau Duran MD [Medical Doctor] - Additional Instructions: - Okay to alternate ibuprofen (Advil, Motrin) 600mg and Tylenol 1000mg every 3 hours for pain. Take with food. Do NOT take for more than 4-5 days - Okay to gargle and spit warm salt water every 4 hours as needed for pain - Stay well hydrated - frequent sips of cold fluids will be soothing to your throat (popsicles, jello, ice cream, ice water). Avoid excess caffeine until your symptoms have resolved. -Throat infections are spread by oral secretions - do not share eating or drinking utensils until you symptoms are resolved. Clean items that may get your secretions such as cell phones, ipads, computer mouse, television remotes. Once you have been on antibiotics for 2 days, change your toothbrush and your pillowcase. - use inhaler - 2puffs every 4 hours today, then every 4 hours as needed. - take prednisone and antibiotics as prescribed\ - humidify the air in the room where you sleep - boil water, run a hot steam shower, vaporizer, cups of water by heat register - Contact Dr. Duran to schedule a follow-up appointment - you have been given a prescription for Diflucan - okay to take if you develop an antibiotics related yeast infection - Billing Disposition and Condition Condition: STABLE Disposition: Home
== END 2018-08-24 07:56 | disposition home or self-care (01) ==
LOC: UCCORT 07:15
DX: J03.90 Acute tonsillitis, unspecified (principal); R09.81 Nasal congestion; Z91.018 Allergy to other foods; Z87.891 Personal history of nicotine dependence
CPT/HCPCS: 87651; 99212; G0463

== ENCOUNTER 2019-04-05 12:14 | Emergency (ER) | payer OTHER ==
[2019-04-05 12:38] VITALS: BP 107/72
--- NOTE | 2019-04-05 12:43 | UC ---
Complaint Female HPI - HPI Summary HPI Summary: Urinary frequency and irritation x3 days. Denies lower back pain. - History Of Current Complaint Chief Complaint: UCGU Stated Complaint: URINARY Time Seen by Provider: 04/05/19 12:35 Hx Obtained From: Patient Hx Last Menstrual Period: was on depo shots ?: No Onset/Duration: Sudden Onset Severity Initially: Mild Severity Currently: Mild Pain Intensity: 0 - Allergies/Home Medications Allergies/Adverse Reactions: Allergies Allergy/AdvReac Type Severity Reaction Status Date / Time White Grape Juice Allergy Swelling Uncoded 04/05/19 12:34 Home Medications: Home Medications NK [No Home Medications Reported] 04/05/19 [History Confirmed 04/05/19] PMH/Surg Hx/FS Hx/Imm Hx Previously Healthy: Yes - Surgical History Surgical History: Yes Surgery Procedure, Year, and Place: tosillectomy - Family History Known Family History: Positive: Hypertension - Social History Alcohol Use: Occasionally Substance Use Type: None Smoking Status (MU): Former Smoker Type: Cigarettes Amount Used/How Often: 1/2 PPD Length of Time of Smoking/Using Tobacco: Since Age 14 Have You Smoked in the Last Year: Yes When Did the Patient Quit Smoking/Using Tobacco: 10/2017 Household Exposure Type: Cigarettes - Immunization History Most Recent Influenza Vaccination: Not the 2015/2016 Season Most Recent Tetanus Shot: 158LBS Review of Systems All Other Systems Reviewed And Are Negative: Yes Gastrointestinal: Positive: Abdominal Pain Genitourinary: Positive: Dysuria, Hematuria Is Patient Immunocompromised?: No Physical Exam Triage Information Reviewed: Yes Appearance: Well-Appearing, No Pain Distress, Pain Distress Vital Signs: Initial Vital Signs Temp 98.2 F 04/05/19 12:34 Pulse 97 04/05/19 12:34 Resp 16 04/05/19 12:34 BP 107/72 04/05/19 12:34 Pulse Ox 98 04/05/19 12:34 Vital Signs Reviewed: Yes Eye Exam: Normal ENT Exam: Normal Dental Exam: Normal Neck exam: Normal Respiratory Exam: Normal Cardiovascular Exam: Normal Abdominal Exam: Normal Bowel Sounds: Positive: Present Musculoskeletal Exam: Normal Neurological Exam: Normal Psychological Exam: Normal Skin Exam: Normal Complaint Female Dx - Course Course Of Treatment: hx obtained, exam performed ,meds reviewed, ua obtained, urine obtained due to unprotected sex. - Differential Dx/Diagnosis Differential Diagnosis/HQI/PQRI: Urinary Tract Infection Provider Diagnosis: Dysuria Discharge ED - Sign-Out/Discharge Documenting (check all that apply): Patient Departure All imaging exams completed and their final reports reviewed: No Studies - Discharge Plan Condition: Stable Disposition: HOME Patient Education Materials: Dysuria (ED) Referrals: Ashly Richards [Primary Care Provider] - Additional Instructions: 1. take the medication as prescribed. 2. Urine culture will be performed and if antibiotic is needed we will inform you. 3. take the cranberry pills and increase fluid intake. 4. Follow up if symtpoms worsen - Billing Disposition and Condition Condition: STABLE Disposition: Home
== END 2019-04-05 13:08 | disposition home or self-care (01) ==
LOC: UCCORT 12:14
DX: R30.0 Dysuria (principal); R35.0 Frequency of micturition; R31.9 Hematuria, unspecified; R10.9 Unspecified abdominal pain; Z91.018 Allergy to other foods; Z87.891 Personal history of nicotine dependence
CPT/HCPCS: 81003; 84702; 87086; 99211; G0463